=== PATIENT | female | born 1965 | race American Indian/Alaskan Native ===

== ENCOUNTER 2018-08-16 17:55 | Observation (INO) | payer OTHER ==
[2018-08-16 18:00] VITALS: BMI 26.9
[2018-08-16 18:03] VITALS: O2SAT 99
[2018-08-16] MEDS ORDERED: Sodium Chloride 0.9% 1,000 ML IV STA (18:30)
--- NOTE | 2018-08-16 18:37 | ED PDOC ---
Arrival/HPI <Estuardo Pride - Last Filed: 08/16/18 20:30> - History of Present Illness Narrative History of Present Illness (Text): 08/16/18 18:35 A 52 year old female, whose past medical history includes anemia, presents to the emergency room complaining of dizziness and nausea since earlier today. P moon notes she is from the [facility], came here in April, and is staying with her doctor. Patient states she experienced dizziness, a room spinning sensation earlier this afternoon which she states resolved after eating but experienced nausea afterwards. Patient states she is currently only experiencing mild nausea. Patient states she had a near syncopal episode. Patient denies any headache, chest pain, shortness of breath, palpitations, vomiting, fever, recent illness, abdominal pain, diarrhea, back pain, or any other complaints. No PMD Time/Duration: 4-6 hours Symptom Onset: Gradual Symptom Course: Improving Activities at Onset: Light Context: Home <Telma Pike PA-C - Last Filed: 08/16/18 21:18> - General Chief Complaint: Dizziness/Lightheaded Time Seen by Provider: 08/16/18 18:16 Past Medical History - Provider Review Nursing Documentation Reviewed: Yes - Cardiac Hx Cardiac Disorders: No - Pulmonary Hx Respiratory Disorders: No - Psychiatric Hx Substance Use: No <Telma Pike PA-C - Last Filed: 08/16/18 21:18> Family/Social History - Physician Review Nursing Documentation Reviewed: Yes Family/Social History: No Known Family HX Smoking Status: Never Smoked Hx Alcohol Use: Yes (rarely) Hx Substance Use: No <Telma Pike PA-C - Last Filed: 08/16/18 21:18> Allergies/Home Meds <Estuardo Pride - Last Filed: 08/16/18 20:30> <Telma Pike PA-C - Last Filed: 08/16/18 21:18> Allergies/Adverse Reactions: Allergies No Known Allergies Allergy (Verified 08/16/18 18:18) Home Medications: Home Meds Medication Instructions Recorded Confirmed No Known Home Med 08/16/18 08/16/18 Review of Systems - Physician Review All systems were reviewed & negative as marked: Yes - Review of Systems Constitutional: absent: Fevers Respiratory: absent: SOB Cardiovascular: absent: Chest Pain, Palpitations Gastrointestinal: Nausea. absent: Abdominal Pain, Diarrhea, Vomiting Musculoskeletal: absent: Back Pain Neurological: Dizziness. absent: Headache <Telma Pike PA-C - Last Filed: 08/16/18 21:18> Physical Exam Vital Signs Temp Pulse Resp BP Pulse Ox 08/16/18 18:13 98.7 F 67 17 133/61 99 08/16/18 18:03 98.7 F 61 19 133/61 99 <Estuardo Pride - Last Filed: 08/16/18 20:30> Vital Signs Reviewed: Yes Vital Signs Temp Pulse Resp BP Pulse Ox 08/16/18 18:13 98.7 F 67 17 133/61 99 08/16/18 18:03 98.7 F 61 19 133/61 99 Temperature: Afebrile Blood Pressure: Normal Pulse: Regular Respiratory Rate: Normal Appearance: Positive for: Well-Appearing Pain Distress: None Mental Status: Positive for: Alert and Oriented X 3 Finger Stick Blood Glucose: 159 - Systems Exam Head: Present: Atraumatic, Normocephalic Pupils: Present: PERRL Extroacular Muscles: Present: EOMI Conjunctiva: Present: Normal Mouth: Present: Dry Neck: Present: Normal Range of Motion Respiratory/Chest: Present: Clear to Auscultation, Good Air Exchange. No: Respi ratory Distress, Accessory Muscle Use Cardiovascular: Present: Regular Rate and Rhythm, Normal S1, S2. No: Murmurs Abdomen: No: Tenderness, Distention, Peritoneal Signs Back: Present: Normal Inspection Upper Extremity: Present: Normal Inspection. No: Cyanosis, Edema Lower Extremity: Present: Normal Inspection. No: Edema Neurological: Present: GCS=15, CN II-XII Intact, Speech Normal Skin: Present: Warm, Dry, Normal Color. No: Rashes Psychiatric: Present: Alert, Oriented x 3, Normal Insight, Normal Concentration <Telma Pike PA-C - Last Filed: 08/16/18 21:18> Medical Decision Making - Lab Interpretations Lab Results: PT 12.5 SECONDS (9.4-12.5) 08/16/18 18:30 INR 1.13 08/16/18 18:30 APTT 30.7 Seconds (26.9-38.3) 08/16/18 18:30 D-Dimer, Quantitative < 200 ng/mlDDU (0-243) 08/16/18 18:30 Troponin I < 0.01 ng/mL 08/16/18 18:30 Total Bilirubin 0.6 mg/dL (0.2-1.3) 08/16/18 18:30 AST 29 U/L (14-36) 08/16/18 18:30 ALT 14 U/L (7-56) 08/16/18 18:30 Alkaline Phosphatase 75 U/L (38-126) 08/16/18 18:30 Total Protein 8.1 g/dL (5.8-8.3) 08/16/18 18:30 Albumin 4.1 g/dL (3.0-4.8) 08/16/18 18:30 Globulin 4.1 gm/dL 08/16/18 18:30 Albumin/Globulin Ratio 1.0 (1.1-1.8) L 08/16/18 18:30 - RAD Interpretation Radiology Orders: 08/16/18 18:29 CHEST PORTABLE [RAD] Stat 08/16/18 19:16 HEAD W/O CONTRAST [CT] Stat - Medication Orders Current Medication Orders: Discontinued Medications Sodium Chloride (Sodium Chloride 0.9%) 1,000 mls @ 500 mls/hr IV .Q2H STA Stop: 08/16/18 20:29 Last Admin: 08/16/18 19:10 Dose: 500 mls/hr eMAR Start Stop Document 08/16/18 19:10 MR (Rec: 08/16/18 19:10 [id number] Intravenous Solution Start Date 08/16/18 Start Time 19:10 End Date 08/16/18 End time 21:10 Total Infusion Time 120 Meclizine HCl (Antivert) 25 mg PO STAT STA Stop: 08/16/18 18:32 Last Admin: 08/16/18 19:11 Dose: 25 mg Ondansetron HCl (Zofran Inj) 4 mg IVP STAT STA Stop: 08/16/18 18:32 Last Admin: 08/16/18 19:10 Dose: 4 mg IVP Administration Document 08/16/18 19:10 MR (Rec: 08/16/18 19:10 [id number] Charges for Administration # of IVP Administrations 1 <Estuardo Pride - Last Filed: 08/16/18 20:30> ED Course and Treatment: 08/16/18 18:35 Impression: 52 year old female presenting to the emergency department complaining of dizziness and nausea. Plan: -- EKG -- Cardiac ISO -- CMP -- Magnesium -- CBC -- D Dimer -- COAGs -- Chest X-ray -- Antivert -- Zofran -- IV fluids -- Urine culture -- Reassess and disposition Prior Visits: Notes and results from previous visits were reviewed. Progress Notes: 08/16/18 20:00 EKG : NSR at 60 bom, no acute ST changes. CXR : NAD. Labs reviewed : hgb 10.3, trop (-), d-dimer (-). Patient went to CT, results pending. 08/16/18 21:16 On reevaluation, patient reports improvement of symptoms, denies any headache, dizziness, CP or SOB. On exam, patient remains awake alert and oriented 3 in no acute distress. Diagnostic results discussed with the patient and her family great detail. Case discussed with medical front desk specialist and with Dr. Gay, they agree with plan for observation to remote telemetry for near syncope. - RAD Interpretation Narrative RAD Interpretations (Text): 08/16/18 20:56 EXAM: CT Head Without IV contrast. CLINICAL HISTORY: Dizziness TECHNIQUE: Axial computed tomography images of the head/brain without intravenous contrast. COMPARISON: None provided. FINDINGS: BRAIN: No acute intraparenchymal hemorrhage. No mass lesion. No CT evidence for acute territorial infarct. No midline shift or extra-axial collections. VENTRICLES: No hydrocephalus. VASCULAR: Atherosclerotic vascular plaquing is seen within the carotid siphons bilatera lly. ORBITS: The orbits are unremarkable. SINUSES AND MASTOIDS: The paranasal sinuses and mastoid air cells are clear. BONES: No fracture. SOFT TISSUES: Unremarkable. IMPRESSION: 1. No acute intracranial abnormality. 2. Atherosclerotic vascular plaquing is noted within the carotid siphons bilaterally. Electronically signed on August 16, 2018 8:51:54 PM EDT by: Niels Chiang M.D., M.B.A., Certified By [employer] Fellowship Trained MRI and CT Specialist Radiology Orders: 08/16/18 18:29 CHEST PORTABLE [RAD] Stat Stripe Matcher: Radiologist - Medication Orders Current Medication Orders: Sodium Chloride (Sodium Chloride 0.9%) 1,000 mls @ 500 mls/hr IV .Q2H STA Stop: 08/16/18 20:29 Meclizine HCl (Antivert) 25 mg PO STAT STA Stop: 08/16/18 18:32 Ondansetron HCl (Zofran Inj) 4 mg IVP STAT STA Stop: 08/16/18 18:32 <Telma Pike PA-C - Last Filed: 08/16/18 21:18> - PA / VP GLOBAL / Resident Statement GITA has reviewed & agrees with the documentation as recorded. <Estuardo Pride - Last Filed: 08/16/18 20:30> - PA / VP GLOBAL / Resident Statement / has reviewed & agrees with the documentation as recorded. - Scribe Statement The provider has reviewed the documentation as recorded by the Scribe Marianna Garcia All medical record entries made by the Maryibabhishek were at my direction and personally dictated by me. I have reviewed the chart and agree that the record accurately reflects my personal performance of the history, physical exam, medical decision making, and the department course for this patient. I have also personally directed, reviewed, and agree with the discharge instructions and disposition. <Telma Pike PA-C - Last Filed: 08/16/18 21:18> Disposition/Present on Arrival <Estuardo Pride - Last Filed: 08/16/18 20:30> - Present on Arrival Any Indicators Present on Arrival: No History of DVT/PE: No History of Uncontrolled Diabetes: No Urinary Catheter: No History of Decub. Ulcer: No History Surgical Site Infection Following: None - Disposition Have Diagnosis and Disposition been Completed?: Yes Disposition Time: 21:15 Patient Plan: Observation (to remote tele) <Telma Pike PA-C - Last Filed: 08/16/18 21:18> - Disposition Diagnosis: Near syncope, Dizziness Disposition: HOME/ ROUTINE Condition: STABLE Forms: [employer] (Faroese)
[2018-08-16 18:59] LABS: BASO # 0.01 K/mm3 (0.0-2.0); BASO % 0.1 % (0.0-3.0); EOS # 0.1 (0.0-0.7); EOS % 1.5 % (1.5-5.0); HEMOGLOBIN 10.3 g/dL (12.0-16.0); LYMPH # 3.2 (1.2-3.4); LYMPH % 36.5 % (22.0-35.0); MEAN CELL VOLUME 66.3 fl (80.0-105.0); MEAN CORPUSCULAR HEMOGLOBIN 20.7 pg (25.0-35.0); MEAN CORPUSCULAR HGB CONC 31.2 g/dl (31.0-37.0); MEAN PLATELET VOLUME 9.4 fl (7.0-11.0); MONO # 0.5 (0.1-0.6); MONO % 5.5 % (1.0-6.0); RBC 4.98 10^6/uL (3.5-6.1); RED CELL DISTRIBUTION WIDTH 15.8 % (11.5-14.5); WHITE BLOOD COUNT 8.8 10^3/uL (4.5-11.0)
[2018-08-16 19:02] LABS: ALBUMIN 4.1 g/dL (3.0-4.8); ALT/SGPT 14 U/L (7-56); AST/SGOT 29 U/L (14-36); BLOOD UREA NITROGEN 14 mg/dL (7-21); CALCIUM 9.5 mg/dL (8.4-10.5); GFR NON-AFRICAN AMERICAN > 60
[2018-08-16 19:03] LABS: INR 1.13; PARTIAL THROMBOPLASTIN TIME 30.7 Seconds (26.9-38.3); PROTHROMBIN TIME 12.5 SECONDS (9.4-12.5)
[2018-08-16 19:07] LABS: D DIMER < 200 ng/mlDDU (0-243)
[2018-08-16 19:12] LABS: TROPONIN I < 0.01 ng/mL
[2018-08-16] MEDS ORDERED: Sodium Chloride 0.9% 1,000 ML IV SCH (22:30)
--- NOTE | 2018-08-17 00:01 | CP.PCM.HP ---
<Fernie Quinones - Last Filed: 08/17/18 00:11> History of Present Illness - History of Present Illness History of Present Illness: PGY-1 Medicine H&P for Dr. Gay CC: Dizziness HPI: Patient is a 52 year old Liberian-speaking female with a past medical history of anemia and hyperlipidemia, presenting with dizziness and nausea for 1 day. Patient states she experienced dizziness, a room spinning sensation earlier this afternoon which she states resolved after eating but experienced nausea afterwards. She admits to having episodes of vertigo many times before. Patient states she is currently only experiencing mild nausea. She denies recent travel or sick contacts. She denies fevers, chills, dizziness, cough, sore throat, shortness of breath, palpitations, chest pain, abdominal pain, vomiting, diarrhea, or urinary symptoms. 12-point ROS reviewed and negative, except mentioned in HPI. PMHx: Anemia (blood transfusion more than 10 years ago) and HLD PSHx: Denies Allergies: NKDA Family Hx: Non-contributory. Social Hx: Denies tobacco, alcohol, or drug use. Patient is from the [facility], moved to the in April. 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 Present on Admission - Present on Admission Any Indicators Present on Admission: No History of DVT/PE: No History of Uncontrolled Diabetes: No Urinary Catheter: No Decubitus Ulcer Present: No Past Patient History - Past Social History Smoking Status: Never Smoked - CARDIAC Hx Cardiac Disorders: No - PULMONARY Hx Respiratory Disorders: No - PSYCHIATRIC Hx Substance Use: No - SURGICAL HISTORY Hx Surgeries: No Meds Allergies/Adverse Reactions: Allergies Allergy/AdvReac Type Severity Reaction Status Date / Time No Known Allergies Allergy Verified 08/16/18 18:18 Physical Exam - Constitutional Appears: Well, Non-toxic, No Acute Distress - Head Exam Head Exam: ATRAUMATIC, NORMAL INSPECTION - Eye Exam Eye Exam: EOMI, Normal appearance Pupil Exam: NORMAL ACCOMODATION - ENT Exam ENT Exam: Mucous Membranes Moist - Neck Exam Neck exam: Positive for: Normal Inspection - Respiratory Exam Respiratory Exam: Clear to Auscultation Bilateral, NORMAL BREATHING PATTERN. absent: Rales, Rhonchi, Wheezes, Respiratory Distress - Cardiovascular Exam Cardiovascular Exam: REGULAR RHYTHM, +S1, +S2. absent: Bradycardia, Tachycardia, Gallop, Rubs, Systolic Murmur - GI/Abdominal Exam GI & Abdominal Exam: Normal Bowel Sounds, Soft. absent: Tenderness - Extremities Exam Extremities exam: Positive for: normal inspection. Negative for: calf tenderness, pedal edema - Back Exam Back exam: NORMAL INSPECTION. absent: CVA tenderness (L), CVA tenderness (R) - Neurological Exam Neurological exam: Alert, CN II-XII Intact, Oriented x3 - Psychiatric Exam Psychiatric exam: Normal Affect, Normal Mood - Skin Skin Exam: Dry, Intact, Normal Color, Warm Results - Vital Signs Recent Vital Signs: Last Vital Signs Temp 98.7 F 08/16/18 18:13 Pulse 67 08/16/18 18:13 Resp 17 08/16/18 18:13 BP 133/61 08/16/18 18:13 Pulse Ox 99 08/16/18 18:13 - Labs Result Diagrams: 08/16/18 18:30 08/16/18 18:30 Labs: Laboratory Results - last 24 hr 08/16/18 08/16/18 08/16/18 18:05 18:30 18:30 WBC 8.8 RBC 4.98 Hgb 10.3 L Hct 33.0 L MCV 66.3 L MCH 20.7 L MCHC 31.2 RDW 15.8 H Plt Count 239 MPV 9.4 Neut % (Auto) 56.4 Lymph % (Auto) 36.5 H [place] % (Auto) 5.5 Eos % (Auto) 1.5 Baso % (Auto) 0.1 Lymph # (Auto) 3.2 [place] # (Auto) 0.5 Eos # (Auto) 0.1 Baso # (Auto) 0.01 Absolute Neuts (auto) 4.97 PT 12.5 INR 1.13 APTT 30.7 D-Dimer, Quantitative < 200 Sodium Potassium Chloride Carbon Dioxide Anion Gap BUN Creatinine Est GFR ( Amer) Est GFR (Non-Af Amer) POC Glucose (mg/dL) 165 H Random Glucose Calcium Magnesium Total Bilirubin AST ALT Alkaline Phosphatase Lactate Dehydrogenase Total Creatine Kinase Troponin I Total Protein Albumin Globulin Albumin/Globulin Ratio 08/16/18 18:30 WBC RBC Hgb Hct MCV MCH MCHC RDW Plt Count MPV Neut % (Auto) Lymph % (Auto) [place] % (Auto) Eos % (Auto) Baso % (Auto) Lymph # (Auto) [place] # (Auto) Eos # (Auto) Baso # (Auto) Absolute Neuts (auto) PT INR APTT D-Dimer, Quantitative Sodium 141 Potassium 3.6 Chloride 104 Carbon Dioxide 29 Anion Gap 12 BUN 14 Creatinine 0.8 Est GFR ( Amer) > 60 Est GFR (Non-Af Amer) > 60 POC Glucose (mg/dL) Random Glucose 107 Calcium 9.5 Magnesium 1.9 Total Bilirubin 0.6 AST 29 ALT 14 Alkaline Phosphatase 75 Lactate Dehydrogenase 577 Total Creatine Kinase 97 Troponin I < 0.01 Total Protein 8.1 Albumin 4.1 Globulin 4.1 Albumin/Globulin Ratio 1.0 L Assessment & Plan - Assessment and Plan (Free Text) Assessment: Patient is a 52 year old [place]ian-speakng female with a past medical history of anemia and hyperlipidemia, presenting with dizziness and nausea for 1 day. Plan: Dizziness - Head CT: No acute intracranial abnormality. Atherosclerotic vascular plaquing is noted within the carotid siphons bilaterally - EKG: NSR @ 60 bpm, no ST changes - CXR: no acute findings - Follow up Echo - Meclizine 25mg Q12H PRN - Zofran PRN - NS @ 100 mL/hr - Follow up TSH, lipid panel, Vit B12 levels Microcytic Anemia - Hb/Hct: 10.3/33.0 - MCV: 66.3 - RDW: 15.8 - Follow up iron studies Hx of HLD - Patient not taking statin - Follow up lipid panel Prophylaxis: - DVT: Lovenox 40mg SC QD - GI: no indications Patient seen and case discussed with attending, Dr. Gay. Fernie Quinones, PGY-1 <Octaviano Gay - Last Filed: 08/17/18 18:35> Results - Vital Signs Recent Vital Signs: Last Vital Signs Temp 98 F 08/17/18 08:35 Pulse 66 08/17/18 08:35 Resp 20 08/17/18 08:35 BP 127/79 08/17/18 08:35 Pulse Ox 99 08/17/18 08:35 - Labs Result Diagrams: 08/17/18 05:00 08/17/18 05:00 Labs: Laboratory Results - last 24 hr 08/16/18 08/16/18 08/16/18 18:05 18:30 18:30 WBC 8.8 RBC 4.98 Hgb 10.3 L Hct 33.0 L MCV 66.3 L MCH 20.7 L MCHC 31.2 RDW 15.8 H Plt Count 239 MPV 9.4 Neut % (Auto) 56.4 Lymph % (Auto) 36.5 H [place] % (Auto) 5.5 Eos % (Auto) 1.5 Baso % (Auto) 0.1 Lymph # (Auto) 3.2 [place] # (Auto) 0.5 Eos # (Auto) 0.1 Baso # (Auto) 0.01 Absolute Neuts (auto) 4.97 PT 12.5 INR 1.13 APTT 30.7 D-Dimer, Quantitative < 200 Sodium Potassium Chloride Carbon Dioxide Anion Gap BUN Creatinine Est GFR ( Amer) Est GFR (Non-Af Amer) POC Glucose (mg/dL) 165 H Random Glucose Calcium Magnesium Iron TIBC % Saturation Transferrin Total Bilirubin AST ALT Alkaline Phosphatase Lactate Dehydrogenase Total Creatine Kinase Troponin I Total Protein Albumin Globulin Albumin/Globulin Ratio Triglycerides Cholesterol LDL Cholesterol Direct HDL Cholesterol Vitamin B12 TSH 3rd Generation 08/16/18 08/17/18 08/17/18 18:30 05:00 05:00 WBC 6.4 D RBC 4.63 Hgb 9.2 L Hct 30.7 L MCV 66.3 L MCH 19.9 L MCHC 30.0 L RDW 15.8 H Plt Count 220 MPV 9.9 Neut % (Auto) 54.7 Lymph % (Auto) 36.3 H [place] % (Auto) 7.2 H Eos % (Auto) 1.6 Baso % (Auto) 0.2 Lymph # (Auto) 2.3 [place] # (Auto) 0.5 Eos # (Auto) 0.1 Baso # (Auto) 0.01 Absolute Neuts (auto) 3.49 PT INR APTT D-Dimer, Quantitative Sodium 141 141 Potassium 3.6 4.4 Chloride 104 107 Carbon Dioxide 29 29 Anion Gap 12 10 BUN 14 18 Creatinine 0.8 0.8 Est GFR ( Amer) > 60 > 60 Est GFR (Non-Af Amer) > 60 > 60 POC Glucose (mg/dL) Random Glucose 107 83 Calcium 9.5 9.2 Magnesium 1.9 Iron TIBC % Saturation Transferrin Total Bilirubin 0.6 0.3 AST 29 29 ALT 14 12 Alkaline Phosphatase 75 67 Lactate Dehydrogenase 577 Total Creatine Kinase 97 Troponin I < 0.01 Total Protein 8.1 6.8 Albumin 4.1 3.4 Globulin 4.1 3.3 Albumin/Globulin Ratio 1.0 L 1.0 L Triglycerides 52 Cholesterol 221 H LDL Cholesterol Direct 113 HDL Cholesterol 54 Vitamin B12 895 TSH 3rd Generation 08/17/18 08/17/18 05:00 05:00 WBC RBC Hgb Hct MCV MCH MCHC RDW Plt Count MPV Neut % (Auto) Lymph % (Auto) [place] % (Auto) Eos % (Auto) Baso % (Auto) Lymph # (Auto) [place] # (Auto) Eos # (Auto) Baso # (Auto) Absolute Neuts (auto) PT INR APTT D-Dimer, Quantitative Sodium Potassium Chloride Carbon Dioxide Anion Gap BUN Creatinine Est GFR ( Amer) Est GFR (Non-Af Amer) POC Glucose (mg/dL) Random Glucose Calcium Magnesium Iron 32 L TIBC 221 L % Saturation 15 L Transferrin 158.20 L Total Bilirubin AST ALT Alkaline Phosphatase Lactate Dehydrogenase Total Creatine Kinase Troponin I Total Protein Albumin Globulin Albumin/Globulin Ratio Triglycerides Cholesterol LDL Cholesterol Direct HDL Cholesterol Vitamin B12 TSH 3rd Generation 1.35 Attending/Attestation - Attestation I have personally seen and examined this patient.: Yes I have fully participated in the care of the patient.: Yes I have reviewed all pertinent clinical information: Yes Notes (Text): 08/17/18 18:35 Seen and examined. Discussed with resident. A&P as above. Nearsyncope 2/2 ? vasovagal.
[2018-08-17 06:53] LABS: ALBUMIN 3.4 g/dL (3.0-4.8); ALT/SGPT 12 U/L (7-56); AST/SGOT 29 U/L (14-36); BLOOD UREA NITROGEN 18 mg/dL (7-21); CALCIUM 9.2 mg/dL (8.4-10.5); GFR NON-AFRICAN AMERICAN > 60; HDL CHOLESTEROL 54 mg/dL (29-60)
[2018-08-17 07:03] LABS: LDL CHOLESTEROL 113 mg/dL (0-129)
[2018-08-17 07:13] LABS: BASO # 0.01 K/mm3 (0.0-2.0); BASO % 0.2 % (0.0-3.0); EOS # 0.1 (0.0-0.7); EOS % 1.6 % (1.5-5.0); HEMOGLOBIN 9.2 g/dL (12.0-16.0); LYMPH # 2.3 (1.2-3.4); LYMPH % 36.3 % (22.0-35.0); MEAN CELL VOLUME 66.3 fl (80.0-105.0); MEAN CORPUSCULAR HEMOGLOBIN 19.9 pg (25.0-35.0); MEAN PLATELET VOLUME 9.9 fl (7.0-11.0); MONO # 0.5 (0.1-0.6); MONO % 7.2 % (1.0-6.0); RBC 4.63 10^6/uL (3.5-6.1); RED CELL DISTRIBUTION WIDTH 15.8 % (11.5-14.5); WHITE BLOOD COUNT 6.4 10^3/uL (4.5-11.0)
[2018-08-17 07:53] LABS: IRON 32 ug/dL (45-180)
[2018-08-17 08:03] LABS: % IRON SATURATION 15 % (20-55); TOTAL IRON BINDING CAPACITY 221 ug/dL (265-497)
[2018-08-17 08:36] VITALS: BP 127/79; RESP 20; TEMP 98
--- NOTE | 2018-08-17 09:25 | CT ---
Date of service: 08/16/2018 PROCEDURE: CT HEAD WITHOUT CONTRAST. HISTORY: dizziness COMPARISON: None available. TECHNIQUE: Axial computed tomography images were obtained through the head/brain without intravenous contrast. Supplemental Coronal and Sagittal projections created and reviewed. Radiation dose: Total exam DLP = 884.12 mGy-cm. This CT exam was performed using one or more of the following dose reduction techniques: Automated exposure control, adjustment of the mA and/or kV according to patient size, and/or use of iterative reconstruction technique. FINDINGS: HEMORRHAGE: No intracranial hemorrhage. BRAIN: No mass effect or edema. No atrophy or chronic microvascular ischemic changes. VENTRICLES: Unremarkable. No hydrocephalus. CALVARIUM: Unremarkable. PARANASAL SINUSES: Unremarkable as visualized. No significant inflammatory changes. MASTOID AIR CELLS: Unremarkable as visualized. No inflammatory changes. OTHER FINDINGS: None. IMPRESSION: No acute intracranial abnormalities. No significant findings to account for the clinical presentation. Concordant results (preliminary interpretation) provided by [facility]. Procedure Completed: 19:56. Preliminary Report: Interpreted and electronically signed: 20:51. Final Interpretation: 09:22. August 17, 2018.
[2018-08-17] MEDS ORDERED: Enoxaparin 40 mg Syringe SC SCH (10:00)
--- NOTE | 2018-08-17 10:49 | CARD ---
APPROVED REPORT Date of service: 08/16/2018 EKG Measurement Heart [id number] <Conclusion> Normal sinus rhythm T wave abnormality, consider anterior ischemia Abnormal ECG
--- NOTE | 2018-08-17 11:46 | RAD ---
Date of service: 08/16/2018 HISTORY: Dizziness and nausea. COMPARISON: No prior. FINDINGS: LUNGS: No active pulmonary disease. PLEURA: No significant pleural effusion identified, no pneumothorax apparent. CARDIOVASCULAR: No atherosclerotic calcification present No radiographic findings to suggest acute or significant cardiovascular disease. OSSEOUS STRUCTURES: No significant abnormalities. VISUALIZED UPPER ABDOMEN: Normal. OTHER FINDINGS: None. IMPRESSION: No active disease.
[2018-08-17 12:01] LABS: TRANSFERRIN 158.2 mg/dL (206-381)
--- NOTE | 2018-08-17 14:29 | CP.PCM.DIS ---
Provider - Provider Date of Admission: 08/16/18 21:18 Attending physician: Petra Alarcon MD Primary care physician: NO PRIMARY CARE PROVIDER Time Spent in preparation of Discharge (in minutes): 45 Diagnosis - Discharge Diagnosis (1) Acute labyrinthitis Status: Acute (2) Vertigo Status: Acute (3) Dizziness Status: Acute (4) Near syncope Status: Acute (5) Iron deficiency anemia Status: Chronic Hospital Course - Lab Results Lab Results: Most Recent Lab Values WBC 6.4 10^3/uL (4.5-11.0) D 08/17/18 05:00 RBC 4.63 10^6/uL (3.5-6.1) 08/17/18 05:00 Hgb 9.2 g/dL (12.0-16.0) L 08/17/18 05:00 Hct 30.7 % (36.0-48.0) L 08/17/18 05:00 MCV 66.3 fl (80.0-105.0) L 08/17/18 05:00 MCH 19.9 pg (25.0-35.0) L 08/17/18 05:00 MCHC 30.0 g/dl (31.0-37.0) L 08/17/18 05:00 RDW 15.8 % (11.5-14.5) H 08/17/18 05:00 Plt Count 220 10^3/uL (120.0-450.0) 08/17/18 05:00 MPV 9.9 fl (7.0-11.0) 08/17/18 05:00 Neut % (Auto) 54.7 % (50.0-68.0) 08/17/18 05:00 Lymph % (Auto) 36.3 % (22.0-35.0) H 08/17/18 05:00 [place] % (Auto) 7.2 % (1.0-6.0) H 08/17/18 05:00 Eos % (Auto) 1.6 % (1.5-5.0) 08/17/18 05:00 Baso % (Auto) 0.2 % (0.0-3.0) 08/17/18 05:00 Lymph # (Auto) 2.3 (1.2-3.4) 08/17/18 05:00 [place] # (Auto) 0.5 (0.1-0.6) 08/17/18 05:00 Eos # (Auto) 0.1 (0.0-0.7) 08/17/18 05:00 Baso # (Auto) 0.01 K/mm3 (0.0-2.0) 08/17/18 05:00 Absolute Neuts (auto) 3.49 (1.4-6.5) 08/17/18 05:00 PT 12.5 SECONDS (9.4-12.5) 08/16/18 18:30 INR 1.13 08/16/18 18:30 APTT 30.7 Seconds (26.9-38.3) 08/16/18 18:30 D-Dimer, Quantitative < 200 ng/mlDDU (0-243) 08/16/18 18:30 Sodium 141 mmol/L (132-148) 08/17/18 05:00 Potassium 4.4 mmol/L (3.6-5.0) 08/17/18 05:00 Chloride 107 mmol/L (98-107) 08/17/18 05:00 Carbon Dioxide 29 mmol/L (21-33) 08/17/18 05:00 Anion Gap 10 (10-20) 08/17/18 05:00 BUN 18 mg/dL (7-21) 08/17/18 05:00 Creatinine 0.8 mg/dl (0.7-1.2) 08/17/18 05:00 Est GFR ( Amer) > 60 08/17/18 05:00 Est GFR (Non-Af Amer) > 60 08/17/18 05:00 POC Glucose (mg/dL) 165 mg/dL (65-110) H 08/16/18 18:05 Random Glucose 83 mg/dL (70-110) 08/17/18 05:00 Calcium 9.2 mg/dL (8.4-10.5) 08/17/18 05:00 Magnesium 1.9 mg/dL (1.7-2.2) 08/16/18 18:30 Iron 32 ug/dL (45-180) L 08/17/18 05:00 TIBC 221 ug/dL (265-497) L 08/17/18 05:00 % Saturation 15 % (20-55) L 08/17/18 05:00 Transferrin 158.20 mg/dL (206-381) L 08/17/18 05:00 Total Bilirubin 0.3 mg/dL (0.2-1.3) 08/17/18 05:00 AST 29 U/L (14-36) 08/17/18 05:00 ALT 12 U/L (7-56) 08/17/18 05:00 Alkaline Phosphatase 67 U/L (38-126) 08/17/18 05:00 Lactate Dehydrogenase 577 U/L (333-699) 08/16/18 18:30 Total Creatine Kinase 97 U/L (35-230) 08/16/18 18:30 Troponin I < 0.01 ng/mL 08/16/18 18:30 Total Protein 6.8 g/dL (5.8-8.3) 08/17/18 05:00 Albumin 3.4 g/dL (3.0-4.8) 08/17/18 05:00 Globulin 3.3 gm/dL 08/17/18 05:00 Albumin/Globulin Ratio 1.0 (1.1-1.8) L 08/17/18 05:00 Triglycerides 52 mg/dL (35-160) 08/17/18 05:00 Cholesterol 221 mg/dL (130-200) H 08/17/18 05:00 LDL Cholesterol Direct 113 mg/dL (0-129) 08/17/18 05:00 HDL Cholesterol 54 mg/dL (29-60) 08/17/18 05:00 Vitamin B12 895 pg/mL (239-931) 08/17/18 05:00 TSH 3rd Generation 1.35 mIU/mL (0.46-4.68) 08/17/18 05:00 - Hospital Course Hospital Course: Ms Smith, 52 year old [place]-speaking female with a past medical history of anemia and hyperlipidemia, presenting with dizziness and nausea for 1 day. Pt has a cold, She took nyquil, had dinner, and felt dizziness with room spinning sensation all within an hour. CBC is remarkable for microcytic anemia, Hb 10, MCV 66, Fe-deficiency. VS stable. Orthostatic VS within normal limit but it was after 1 day of IV fluid. CT head was negative for acute pathology. The dizziness/vertigo is likely labrynitis from recent cold, possibly in the setting of decrease PO intake from the recent viral illness. Supportive treatment. Cholesteral is high at 221, LDL 113, 10-years ASCVD risk 5.7. Will start medium dose statin. No ASA due to anemia. Pt has iron deficiency anemia, will start Fe supplement with stool softener prn constipation. Pt can ambulate independently with stable gait. Dizziness resolved on meclizine PRN and will be discharge with meclizine. Pt instructed to follow up with PMD and screening colonoscopy. Son by bedside who is aware of the diagnosis, course of hospitalization, and discharge plan Discharge Exam - Head Exam Head Exam: ATRAUMATIC, NORMAL INSPECTION - Eye Exam Eye Exam: EOMI, Normal appearance, PERRL. absent: Scleral icterus Pupil Exam: NORMAL ACCOMODATION - ENT Exam ENT Exam: Mucous Membranes Moist - Neck Exam Additional comments: supple. No carotid murmur b/l - Respiratory Exam Respiratory Exam: Clear to PA & Lateral, NORMAL BREATHING PATTERN. absent: Rales, Rhonchi, Wheezes - Cardiovascular Exam Cardiovascular Exam: REGULAR RHYTHM, +S1, +S2. absent: Systolic Murmur - GI/Abdominal Exam GI & Abdominal Exam: Normal Bowel Sounds, Soft. absent: Distended, Guarding, Rigid, Tenderness - Extremities Exam Extremities exam: pedal pulses present Additional comments: no calf tenderness, no edema - Back Exam Back exam: absent: CVA tenderness (L), CVA tenderness (R) - Neurological Exam Neurological exam: Alert, CN II-XII Intact, Normal Gait, Oriented x3, Reflexes Normal Additional comments: (+) nystagmus in danish-hallpike manuever - Psychiatric Exam Psychiatric exam: Normal Affect, Normal Mood - Skin Skin Exam: Dry, Warm Discharge Plan - Discharge Medications Prescriptions: Atorvastatin [Lipitor] 10 mg PO DIN #30 tab Ferrous Sulfate [Feosol] 325 mg PO DAILY #30 tab Meclizine [Meclizine*] 25 mg PO Q12H PRN #14 tab PRN Reason: Dizziness Polyethylene Glycol 3350 [Miralax] 17 gm PO DAILY PRN #1 bottle PRN Reason: Constipation - Follow Up Plan Condition: STABLE Disposition: HOME/ ROUTINE Instructions: Syncope (Fainting) Additional Instructions: To make appointment for the [facility] with Dr Gary, at [facility]: Call [phone] Saturday to Saturday Leave a message to make an appointment with your name and number. See a mounted police officer for a screening colonoscopy because of your iron deficiency anemia and age For the cholesterol medicine, lipitor, stop if you feel muscle pain and come to emergency room. If you have any new symptoms, come to the nearest emergency room. Referrals: [facility] [Outside]
[2018-08-17 18:49] VITALS: PULSE 62
== END 2018-08-17 15:13 | disposition home or self-care (01) ==
LOC: ED 17:55 → ERH 21:18 → 3RNO 22:27
PROVIDERS: ADMIT Internal Medicine; ATTEND Internal Medicine
DX: H83.09 Labyrinthitis, unspecified ear (principal); D50.9 Iron deficiency anemia, unspecified; E78.5 Hyperlipidemia, unspecified; R55 Syncope and collapse
CPT/HCPCS: 36415; 70450; 71045; 80053; 80061; 81025; 82550; 82607; 82948; 83540; 83615; 83735; 84443; 84466; 84484; 85025; 85378; 85610; 85730; 93005; 96361; 96372; 96374; 99285; G0378; J1650; J2405; J7030

== ENCOUNTER 2018-08-25 15:40 | Outpatient (CLI) | payer OTHER | END 2018-08-25 15:41 | disposition home or self-care (01) | LOC: LAB 15:40 ==

== ENCOUNTER 2018-09-02 09:11 | Outpatient (CLI) | payer OTHER | END 2018-09-02 09:12 | disposition home or self-care (01) | LOC: RAD 09:11 ==